=== PATIENT | female | born 1935 | race Caucasian/White ===

== ENCOUNTER → 2022-03-17 | Outpatient (CLI) | payer MEDICARE, SELFPAY ==
--- NOTE | 2022-03-17 15:32 | US_ITS ---
EXAM: US RETROPERITONEAL LIMITED, RENAL CLINICAL INDICATION: UTI TECHNIQUE: Limited grayscale and color Doppler sonographic evaluation of the retroperitoneum was performed. This report was created using Cardiovascular Simulation report [employer] technology. COMPARISON: None. FINDINGS: RIGHT KIDNEY: The right kidney measures 10.9 x 4.3 x 4.6 cm. The renal cortex measures 1.1 cm. The renal cortex is 1.1 cm. No hydronephrosis. No shadowing calculus. No perinephric collection is demonstrated. LEFT KIDNEY: The left kidney measures 10.6 x 4.7 x 4.5 cm. BLADDER: The bladder measures 6.8 x 3.8 x 9.5 cm for volume of 126 mL. The bladder wall measures 3.5 mm. There are bilateral ureteral jets. Post void the bladder measures 4.9 x 2.1 x 6.1 cm for volume of 33 mL. US/Kidney and Bladder IMPRESSION: No acute findings in the retroperitoneum. Electronically Signed: Marty Schmidt MD at 11:53 EDT ,
== END | disposition home or self-care (01) ==
PROVIDERS: Visit Provider Urology
DX: N39.0 Urinary tract infection, site not specified (principal)
CPT/HCPCS: 76770